=== PATIENT | female | born 1950 | race Caucasian/White ===

== ENCOUNTER 2021-01-30 11:43 | Emergency (ER) | payer MEDICARE, BC ==
[~2021-01-30] VITALS: Ht 157.5 cm; Wt 59.4 kg
--- NOTE | 2021-01-30 12:07 | NUR ---
[facility] AT BEDSIDE
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
--- NOTE | 2021-01-30 12:37 | NUR ---
PT BACK FROM CT
--- NOTE | 2021-01-30 13:48 | NUR ---
Patient discharged to home in stable condition. Written and verbal after care instructions given. Patient verbalizes understanding of instruction.IV removed. Catheter intact and site benign. Pressure and 4x4 applied to site. No bleeding noted. Pt ambulatory with a steady gait
[2021-01-30 13:49] VITALS: BP 136/79
== END 2021-01-30 13:49 | disposition home or self-care (01) ==
LOC: ER 11:59
DX: S70.11XA Contusion of right thigh, initial encounter (principal); Z60.2 Problems related to living alone; V02.90XA Pedestrian on foot injured in collision with two- or three-wheeled motor vehicle, unspecified whether traffic or nontraffic accident, initial encounter; Y93.89 Activity, other specified; Y92.89 Other specified places as the place of occurrence of the external cause; Y99.8 Other external cause status
CPT/HCPCS: 73700-TC